=== PATIENT | male | born 1995 | race Caucasian/White ===

== ENCOUNTER 2017-09-30 19:50 | Emergency (ER) | payer OTHER ==
--- NOTE | 2017-09-30 22:40 | XRAY Report ---
Procedure Date: 09/30/2017 Accession Number: [id number] / [id number] Procedure: XR - Chest 2 View X-Ray CPT Code: 72615 FULL RESULT: EXAM: CHEST RADIOGRAPHY EXAM DATE: 09/30/2017 10:07 PM. CLINICAL HISTORY: Cough, history of lung nodule. COMPARISON: None. TECHNIQUE: 2 views. FINDINGS: Lungs/Pleura: No alveolar consolidation or pleural effusion seen. No pneumothorax. Mediastinum: Heart and mediastinal contours are unremarkable. Other: None. IMPRESSION: 1. No acute abnormality seen in the chest. RADIA
--- NOTE | 2017-09-30 23:41 | ED Physician Documentation ---
History of Present Illness - Stated complaint Stated Complaint: LUNG PX/SOA - Chief complaint Chief Complaint: Resp - History obtained from History obtained from: Patient - Additonal information Additional information: 21-year-old male presents to the emergency department for evaluation of a cough. The patient denies difficulty breathing, fevers, chills, wheezing or dyspnea on exertion or chest pain. The patient has a history of a pulmonary nodule and is concerned it may have worsened. The patient denies hemoptysis. Symptoms are described as mild. No triggering factors. No relieving factors. Presently the patient feels much improved Review of Systems Constitutional: denies: Fever, Chills Cardiac: denies: Chest pain / pressure Respiratory: reports: Cough. denies: Dyspnea, Hemoptysis, Wheezing GI: denies: Abdominal Pain Skin: denies: Rash Immunocompromised: denies: Chemotherapy PD PAST MEDICAL HISTORY - Past Medical History Past Medical History: Yes Cardiovascular: None Respiratory: Pneumonia Neuro: None Endocrine/Autoimmune: None GI: None : None HEENT: None Psych: None Musculoskeletal: None - Present Medications Home Medications: Ambulatory Orders Medication Instructions Recorded Confirmed No Known Home Medications [No 09/30/17 09/30/17 Known Home Medications] - Allergies Allergies/Adverse Reactions: Allergies Allergy/AdvReac Type Severity Reaction Status Date / Time sulfamethoxazole Allergy Rash Verified 09/30/17 19:59 [From Bactrim] trimethoprim [From Bactrim] Allergy Rash Verified 09/30/17 19:59 - Social History Does the pt smoke?: No Smoking Status: Never smoker PD ED PE NORMAL - General General: Alert and oriented X 3, No acute distress - HEENT HEENT: Atraumatic, PERRL, EOMI - Cardiac Cardiac: RRR, Strong equal pulses - Respiratory Respiratory: No respiratory distress, Clear bilaterally - Derm Derm: Normal color - Extremities Extremities: No deformity - Neuro Neuro: Alert and oriented X 3, No motor deficit - Psych Psych: Normal mood Results - Vitals Vitals: Vital Signs - 24 hr 09/30/17 09/30/17 09/30/17 19:57 21:16 22:20 Temperature 36.5 C Heart Rate 77 85 70 Respiratory 16 14 16 Rate Blood Pressure 124/80 128/82 H 121/68 O2 Saturation 98 100 99 09/30/17 23:49 Temperature Heart Rate 68 Respiratory 17 Rate Blood Pressure 125/93 H O2 Saturation 100 Oxygen O2 Source Room air - Rads (name of study) Chest x-ray Radiology: Final report received (Impression: 1. No acute abnormality seen in the chest) PD MEDICAL DECISION MAKING - ED course ED course: The patient is much improved on reevaluation and has no signs of pneumonia, bronchitis or wheezing. The patient appears appropriate for discharge and further workup as an outpatient. I discussed warning signs and recommended returning to the emergency department for any worsening or any concerns. - Sepsis Event Vital Signs: Vital Signs - 24 hr 09/30/17 09/30/17 09/30/17 19:57 21:16 22:20 Temperature 36.5 C Heart Rate 77 85 70 Respiratory 16 14 16 Rate Blood Pressure 124/80 128/82 H 121/68 O2 Saturation 98 100 99 09/30/17 23:49 Temperature Heart Rate 68 Respiratory 17 Rate Blood Pressure 125/93 H O2 Saturation 100 Oxygen O2 Source Room air Departure - Departure Disposition: 01 Home, Self Care Clinical Impression: Cough Condition: Good Instructions: ED Cough Chronic Cause Unkn Comments: Please follow-up with your primary care physician for further workup and management of your chronic cough. Please return to the emergency department for worsening symptoms or any concerns Discharge Date/Time: 09/30/17 23:50
[2017-09-30 23:49] VITALS: BP 125/93
== END 2017-09-30 23:50 | disposition home or self-care (01) ==
LOC: ED 19:50
DX: R05 Cough (principal)
CPT/HCPCS: 71046; 99282; 99283

== ENCOUNTER 2018-05-28 23:38 | Emergency (ER) | payer OTHER ==
--- NOTE | 2018-05-29 01:13 | ED Physician Documentation ---
PD HPI HEENT - Stated complaint Stated Complaint: SORE THROAT - Chief complaint Chief Complaint: Heent - History obtained from History obtained from: Patient - History of Present Illness Timing - onset: How many days ago (4) Timing - duration: Days Timing - details: Gradual onset Location: Throat Improves: Nothing Worsens: Swalllowing Associated symptoms: No: Fever, Congestion, Rhinorrhea, Trismus, Unable to swallow, Swollen nodes, Facial swelling, Headache, Cough Similar symptoms before: Has not had sx before Recently seen: Not recently seen Review of Systems Constitutional: reports: Reviewed and negative Ears: reports: Reviewed and negative Nose: reports: Reviewed and negative Throat: reports: Sore throat PD PAST MEDICAL HISTORY - Past Medical History Past Medical History: No Cardiovascular: None Respiratory: Pneumonia Neuro: None Endocrine/Autoimmune: None GI: None : None HEENT: None Psych: None Musculoskeletal: None - Past Surgical History Past Surgical History: No - Present Medications Home Medications: Ambulatory Orders Medication Instructions Recorded Confirmed Hydrocodone/Acetaminophen 1 - 2 each PO Q6H PRN #14 tablet 05/29/18 [Hydrocodon-Acetaminophen 5-325] - Allergies Allergies/Adverse Reactions: Allergies Allergy/AdvReac Type Severity Reaction Status Date / Time sulfamethoxazole Allergy Rash Verified 05/28/18 23:41 [From Bactrim] trimethoprim [From Bactrim] Allergy Rash Verified 05/28/18 23:41 - Social History Does the pt smoke?: No Smoking Status: Never smoker Does the pt drink ETOH?: No Does the pt have substance abuse?: No - Immunizations Immunizations are current?: Yes - POLST Patient has POLST: No PD ED PE NORMAL - Vitals Vital signs reviewed: Yes - General General: Alert and oriented X 3, No acute distress, Well developed/nourished - HEENT HEENT: Ears normal, Moist mucous membranes, Pharynx benign - Neck Neck: Supple, no meningeal sign - Respiratory Respiratory: No respiratory distress, Clear bilaterally Results - Vitals Vitals: Vital Signs - 24 hr 05/29/18 01:38 Heart Rate 85 Respiratory 17 Rate Blood Pressure 126/90 H O2 Saturation 100 Oxygen O2 Source Room air - Labs Labs: Microbiology 05/28/18 23:46 Group A Strep Throat Culture - Preliminary Throat CULTURE IN PROGRESS. RESULTS TO FOLLOW. Laboratory Tests 05/28/18 23:46 Group A Strep Rapid Negative PD MEDICAL DECISION MAKING - ED course Complexity details: reviewed results, re-evaluated patient, considered differential, d/w patient Departure - Departure Disposition: 01 Home, Self Care Clinical Impression: Pharyngitis Condition: Good Instructions: ED Pharyngitis Viral Report Pending Follow-Up: [facility] [Provider Group] Prescriptions: Hydrocodone/Acetaminophen [Hydrocodon-Acetaminophen 5-325] 1 - 2 each PO Q6H PRN #14 tablet PRN Reason: pain Forms: Activity restrictions Discharge Date/Time: 05/29/18 01:40
[2018-05-29] MEDS ORDERED: HYDROcod/ACETAM 5/325 MG TABLET PO STA (01:29)
[2018-05-29] MEDS ORDERED: DEXAMETHASONE 10 MG/ML VIAL PO STA (01:29)
[2018-05-29 01:39] VITALS: BP 126/90
== END 2018-05-29 01:40 | disposition home or self-care (01) ==
LOC: ED 23:38
DX: J02.9 Acute pharyngitis, unspecified (principal)
CPT/HCPCS: 87070; 87430; 99283; A9270